=== PATIENT | female | born 1960 | race Caucasian/White ===

== ENCOUNTER 2019-05-30 10:25 | Inpatient (IN) | payer BC ==
[2019-05-30] MEDS ORDERED: NS 0.9% 1000 ML** 1,000 ML IV ONE (10:35)
[2019-05-30] MEDS ORDERED: Morphine 4 MG/ML VIAL (1 ml) 4 MG/ML VIAL IV ONE (10:35)
[2019-05-30] MEDS ORDERED: Ondansetron INJ* 2 MG/ML VIAL IV ONE (10:35)
[2019-05-30 11:19] LABS: Hematocrit 46 % (35-47); Hemoglobin 15.8 g/dL (12.0-16.0); Mean Corpuscular HGB Conc 35 g/dL (31-36); Mean Corpuscular Hemoglobin 32 pg (27-31); Mean Corpuscular Volume 91 fL (80-97); Mean Platelet Volume 8.6 fL (7.4-10.4); Platelet Count 13 10^3/uL (150-450); Red Blood Count 4.99 10^6 /uL (3.70-4.87); Red Cell Distribution Width 13 % (10-15); White Blood Count 4.3 10^3/uL (3.5-10.8)
[2019-05-30 11:40] LABS: Troponin I 0.01 ng/mL (<0.04)
[2019-05-30 11:44] LABS: ABS Eosinophils 0.1 10^3/ul (0-0.6); ABS Lymphocytes 1.5 10^3/ul (1.0-4.8); ABS Monocytes 0.2 10^3/ul (0-0.8); ABS Neutrophils 2.5 10^3/ul (1.5-7.7); Eosinophil % 1.3 %; Nucleated Red Blood Cells % 0.2
[2019-05-30 11:46] LABS: Activated Partial Thrombo Time 31.9 seconds (26.0-38.0); INR 0.98 (0.82-1.09)
[2019-05-30 11:47] LABS: ALT 17 U/L (7-52); Albumin 4.3 g/dL (3.2-5.2); Alkaline Phosphatase 62 U/L (34-104); BUN/Creatinine Ratio 15.9 (8-20); Blood Urea Nitrogen 11 mg/dL (6-24); CO2 Carbon Dioxide 23 mmol/L (22-32); Calcium 9.6 mg/dL (8.6-10.3); Chloride 107 mmol/L (101-111); EGFR African American 104.7 (>60); EGFR Non-African American 86.5 (>60); Globulin 2.1 g/dL (2-4); Glucose 106 mg/dL (70-100); Sodium 138 mmol/L (135-145); Total Protein 6.4 g/dL (6.4-8.9)
[2019-05-30 11:50] LABS: Anion Gap 8 mmol/L (2-11)
[2019-05-30] MEDS ORDERED: Iohexol 300* (CONTRAST) 10 ML SDV IV ONE (12:31)
[2019-05-30] MEDS ORDERED: Acetaminophen TAB* 325 MG PO PRN (13:10)
[2019-05-30] MEDS ORDERED: Morphine 4 MG/ML VIAL (1 ml) 4 MG/ML VIAL IV PRN (13:39)
[2019-05-30] MEDS ORDERED: Dexamethasone IV* 4 MG/ML 1 ML (4 MG) IV SLOW PU SCH (14:00)
--- NOTE | 2019-05-30 15:01 | ED ---
GI/ HPI - HPI Summary HPI Summary: 59 year old female presents to the ED with a chief complaint of intermittent low left abdominal pain secondary to a hernia starting several days ago, worsening this morning. She rates the pain a 6/10 in severity. She noticed a protrusion in her LLQ a few days ago; this protrusion was able to be pushed back in at first, but no longer reduces. The patient also reports subjective fever and nausea but no vomiting. Pt additionally denies any chills, erythema of eyes, sore throat, CP, SOB, cough, dysuria, hematuria, myalgia, edema, rash, or dizziness. Irregular bowel movement this morning. PSHx of breast reconstruction and non-cancerous ovary and fallopian tube removal, appendectomy. - History of Current Complaint Chief Complaint: EDAbdPain Stated Complaint: ABDOMINAL PAIN PER PT Hx Obtained From: Patient Onset/Duration: Started Days Ago, Still Present Timing: Intermittent Severity: Moderate Current Severity: Moderate Pain Intensity: 6 Location of Pain: LLQ Pain Radiates to: Inguinal Associated Signs and Symptoms: Positive: Nausea, Fever, Abdominal Pain, Other: - Positive: irregular BM. Negative: erythema of eyes, sore throat, SOB, myalgia , edema, rash. Negative: Dizziness, Vomiting, Hematuria, Dysuria, Chills, Cough , Chest Pain Aggravating Factor(s): Nothing Alleviating Factor(s): Nothing - Allergy/Home Medications Allergies/Adverse Reactions: Allergies Allergy/AdvReac Type Severity Reaction Status Date / Time diphenhydramine Allergy Severe Anaphylatic Verified 10/02/17 10:48 [From Benadryl] Shock adhesive Allergy Blisters Verified 05/30/19 14:38 doxorubicin [From Adriamycin] Allergy Anaphylatic Verified 10/02/17 10:47 Shock orange Allergy Anaphylatic Verified 05/30/19 14:37 Shock PMH/Surg Hx/FS Hx/Imm Hx Endocrine/Hematology History: Denies: Hx Diabetes Cardiovascular History: Denies: Hx Hypertension, Hx Pacemaker/ICD Respiratory History: Denies: Other Respiratory Problems/Disorders GI History: Reports: Other GI Disorders - OCCASIONAL GASSY, ABD PAIN- CHANGED DIET History: Denies: Hx Renal Disease Musculoskeletal History: Reports: Other Musculoskeletal History - RIGHT KNEE PAIN, R/T MENISCUS TEAR Sensory History: Reports: Hx Contacts or Glasses - GLASSES Denies: Hx Hearing Aid Opthamlomology History: Reports: Hx Contacts or Glasses - GLASSES Neurological History: Reports: Hx Migraine - 1 TIME A YEAR Denies: Other Neuro Impairments/Disorders Psychiatric History: Denies: Hx Panic Disorder - Cancer History Cancer Type, Location and Year: RT BREAST 2006 Hx Chemotherapy: Yes - BREAST Hx Radiation Therapy: Yes - BREAST - Surgical History Surgical History: Yes Surgery Procedure, Year, and Place: APPENDECTOMY A CHILD,. 2000 LAPAROSCOPIC CHOLECYSTECTOMY, [place]. 2005 RIGHT BREAST MASTECTOMY WITH TRANSFLAP RECONSTRUCTION, [place]. 2010 BILATERAL OVARY AND FALLOPIAN TUBES REMOVED, [place], [place]. 2013 UMBILICAL HERNIA REPAIR WITH MESH, [facility] [place]. 09/2006 - Lt BREAST LIFT. 03/2016 - Rt KNEE - MENISCUS Hx Anesthesia Reactions: No Infectious Disease History: No Infectious Disease History: Denies: Traveled Outside the in Last 30 Days - Social History Alcohol Use: Daily Alcohol Amount: BEER OR WINE Substance Use Type: Reports: None Smoking Status (MU): Never Smoked Tobacco Review of Systems Positive: Fever. Negative: Chills Negative: Erythema Negative: Sore Throat Negative: Chest Pain Negative: Shortness Of Breath, Cough Positive: Abdominal Pain, Nausea, Other - irregular bowel movement. Negative: Vomiting Negative: dysuria, hematuria Negative: Myalgia, Edema Negative: Rash Neurological: Negative - Negative - dizziness All Other Systems Reviewed And Are Negative: Yes Physical Exam - Summary Physical Exam Summary: Constitutional: Well-developed, Well-nourished, Alert. (-) Distressed Skin: Warm, Dry HENT: Normocephalic; Atraumatic Eyes: Conjunctiva normal Neck: Musculoskeletal ROM normal neck. (-) JVD, (-) Stridor, (-) Tracheal deviation Cardio: Rhythm regular, rate normal, Heart sounds normal; Intact distal pulses; The pedal pulses are 2+ and symmetric. Radial pulses are 2+ and symmetric. (-) Murmur Pulmonary/Chest wall: Effort normal. (-) Respiratory distress, (-) Wheezes, (-) Rales Abd: Left inguinal hernia that is not reducible, No overlying erythema, Tender to palpation. Soft, (-) Distension, (-) Guarding, (-) Rebound. Musculoskeletal: (-) Edema Lymph: (-) Cervical adenopathy Neuro: Alert, Oriented x3 Psych: Mood and affect Normal Triage Information Reviewed: Yes Vital Signs On Initial Exam: Initial Vitals Temp Pulse Resp BP Pulse Ox 97.9 F 67 18 143/99 100 05/30/19 10:26 05/30/19 10:26 05/30/19 10:26 05/30/19 10:26 05/30/19 10:26 Vital Signs Reviewed: Yes Procedures - Procedure Summary Procedure Summary: Hernia Reduction Procedure: I attempted a hernia reduction procedure after IV morphine was administered. Unable to reduce, surgery will be consulted. - Sedation Patient Received Moderate/Deep Sedation with Procedure: No Diagnostics - Vital Signs Vital Signs Temp Pulse Resp BP Pulse Ox 05/30/19 13:06 70 136/91 100 05/30/19 13:00 71 100 05/30/19 12:36 64 129/84 100 05/30/19 12:06 67 131/82 100 05/30/19 12:00 70 100 05/30/19 11:36 75 140/95 100 05/30/19 11:06 63 125/80 97 05/30/19 11:00 65 100 05/30/19 10:53 68 100 05/30/19 10:51 16 05/30/19 10:26 97.9 F 67 18 143/99 100 - Laboratory Lab Results: Lab Results 05/30/19 05/30/19 05/30/19 Range/Units 10:55 10:57 10:57 WBC 4.3 (3.5-10.8) 10^3/uL RBC 4.99 H (3.70-4.87) 10^6 /uL Hgb 15.8 (12.0-16.0) g/dL Hct 46 (35-47) % MCV 91 (80-97) fL MCH 32 H (27-31) pg MCHC 35 (31-36) g/dL RDW 13 (10-15) % Plt Count 13 L* (150-450) 10^3/uL MPV 8.6 (7.4-10.4) fL Neut % (Auto) 57.8 % Lymph % (Auto) 35.0 % Telfair % (Auto) 5.2 % Eos % (Auto) 1.3 % Baso % (Auto) 0.7 % Absolute Neuts (auto) 2.5 (1.5-7.7) 10^3/ul Absolute Lymphs (auto) 1.5 (1.0-4.8) 10^3/ul Absolute Monos (auto) 0.2 (0-0.8) 10^3/ul Absolute Eos (auto) 0.1 (0-0.6) 10^3/ul Absolute Basos (auto) 0.0 (0-0.2) 10^3/ul Absolute Nucleated RBC 0.0 10^3/ul Nucleated RBC % 0.2 Hem Pathologist Commnt Pending INR (Anticoag Therapy) (0.82-1.09) APTT (26.0-38.0) seconds Sodium 138 (135-145) mmol/L Potassium TNP Chloride 107 (101-111) mmol/L Carbon Dioxide 23 (22-32) mmol/L Anion Gap 8 (2-11) mmol/L BUN 11 (6-24) mg/dL Creatinine 0.69 (0.51-0.95) mg/dL Est GFR ( Amer) 104.7 (>60) Est GFR (Non-Af Amer) 86.5 (>60) BUN/Creatinine Ratio 15.9 (8-20) Glucose 106 H (70-100) mg/dL Lactic Acid 1.5 (0.5-2.0) mmol/L Calcium 9.6 (8.6-10.3) mg/dL Total Bilirubin 0.70 (0.2-1.0) mg/dL AST TNP ALT 17 (7-52) U/L Alkaline Phosphatase 62 (34-104) U/L Troponin I 0.01 (<0.04) ng/mL Total Protein 6.4 (6.4-8.9) g/dL Albumin 4.3 (3.2-5.2) g/dL Globulin 2.1 (2-4) g/dL Albumin/Globulin Ratio 2.0 (1-3) Blood Type Antibody Screen 05/30/19 05/30/19 05/30/19 Range/Units 10:57 11:25 12:17 WBC (3.5-10.8) 10^3/uL RBC (3.70-4.87) 10^6 /uL Hgb (12.0-16.0) g/dL Hct (35-47) % MCV (80-97) fL MCH (27-31) pg MCHC (31-36) g/dL RDW (10-15) % Plt Count (150-450) 10^3/uL MPV (7.4-10.4) fL Neut % (Auto) % Lymph % (Auto) % Telfair % (Auto) % Eos % (Auto) % Baso % (Auto) % Absolute Neuts (auto) (1.5-7.7) 10^3/ul Absolute Lymphs (auto) (1.0-4.8) 10^3/ul Absolute Monos (auto) (0-0.8) 10^3/ul Absolute Eos (auto) (0-0.6) 10^3/ul Absolute Basos (auto) (0-0.2) 10^3/ul Absolute Nucleated RBC 10^3/ul Nucleated RBC % Hem Pathologist Commnt INR (Anticoag Therapy) 0.98 (0.82-1.09) APTT 31.9 (26.0-38.0) seconds Sodium (135-145) mmol/L Potassium 4.0 Chloride (101-111) mmol/L Carbon Dioxide (22-32) mmol/L Anion Gap (2-11) mmol/L BUN (6-24) mg/dL Creatinine (0.51-0.95) mg/dL Est GFR ( Amer) (>60) Est GFR (Non-Af Amer) (>60) BUN/Creatinine Ratio (8-20) Glucose (70-100) mg/dL Lactic Acid (0.5-2.0) mmol/L Calcium (8.6-10.3) mg/dL Total Bilirubin (0.2-1.0) mg/dL AST 22 ALT (7-52) U/L Alkaline Phosphatase (34-104) U/L Troponin I (<0.04) ng/mL Total Protein (6.4-8.9) g/dL Albumin (3.2-5.2) g/dL Globulin (2-4) g/dL Albumin/Globulin Ratio (1-3) Blood Type O Positive Antibody Screen Negative Result Diagrams: 05/31/19 08:18 05/31/19 08:18 Lab Statement: Any lab studies that have been ordered have been reviewed, and results considered in the medical decision making process. - CT AP CT CT Interpretation Completed By: Radiologist Summary of CT Findings: AP CT shows fat-containing left lower quadrant ventral hernia. There is stranding of the herniated fat which may indicate incarceration given the clinical history. An ED physician has reviewed this report. Re-Evaluation - Re-Evaluation First Eval Re-Evaluation Time: 11:50 Change: Unchanged Comment: At 1150, I attempted hernia reduction (see procedure note). Second Eval Re-Evaluation Time: 14:20 Comment: We discussed plan for admission for surgery, pt agrees. GIGU Course/Dx - Course Course Of Treatment: 59 year old female presents to the ED with a chief complaint of intermittent low left abdominal pain secondary to a hernia starting several days ago, worsening this morning. She rates the pain a 6/10 in severity. She noticed a protrusion in her LLQ a few days ago; this protrusion was able to be pushed back in at first, but no longer reduces. The patient also reports subjective fever and nausea but no vomiting. Pt additionally denies any chills, erythema of eyes, sore throat, CP, SOB, cough, dysuria, hematuria, myalgia, edema, rash, or dizziness. Irregular bowel movement this morning. PSHx of breast reconstruction and non-cancerous ovary and fallopian tube removal, appendectomy. Physical exam shows a left inguinal hernia that is not reducible, no overlying erythema but is tender to palpation. Pt administered fluids, morphine, and Zofran in the ED. Lab results show RBCs of 4.99, MCH of 32, plt count of 13, glucose of 106. Lactic acid negative at 1.5 with repeat of 1.0. I attempted a hernia reduction procedure after IV morphine was administered. Unable to reduce, surgery will be consulted. Abd/Pel CT shows fat-containing left lower quadrant ventral hernia. There is stranding of the herniated fat which may indicate incarceration given the clinical history. At [address] Joseph, message left as he was in surgery, but he returned call and will come to the ED. At [address] Potts, Oncology, about the patient' s case. Dr. Joseph agreed that the patient be admitted for hernia reduction surgery. Patient admitted to surgery. She understands and agrees with plan. Diagnosis is left lower quadrant ventral hernia. - Diagnoses Provider Diagnoses: Ventral hernia - Physician Notifications Discussed Care Of Patient With: Anderson Joseph - surgery Time Discussed With Above Provider: 11:05 Instructed by Provider To: Other - 1105 - Left a message for Dr. Joseph as he is currently in surgery; he will come to ED to speak with pt. 1212 - discussed pt's case with Dr. Potts. 1541 - Dr. Joseph still in agreement with plan for admission. Discharge ED - Sign-Out/Discharge Documenting (check all that apply): Patient Departure - discharge - Discharge Plan Condition: Stable Disposition: ADMITTED TO [facility] - Billing Disposition and Condition Condition: STABLE Disposition: Admitted to [facility] - Attestation Statements Document Initiated by Scribe: Yes Documenting Scribe: Houston Canales Provider For Whom Scribe is Documenting (Include Credential): Richard Urbina MD. Scribe Attestation: Houston Russell, anuped for Richard Urbina MD. on 06/10/19 at 2128. Scribe Documentation Reviewed: Yes Provider Attestation: The documentation as recorded by the scribeHouston accurately reflects the service I personally performed and the decisions made by Richard nguyen MD. Status of Scribe Document: Viewed
[2019-05-30] MEDS ORDERED: IMMUNE GLOBULN IV SCH ×2 (16:30→21:00)
--- NOTE | 2019-05-30 17:38 | CONS ---
CC: Dr. Ilya Potts at [facility] * CONSULTATION REPORT: DATE OF CONSULT: 05/30/19 REASON FOR CONSULTATION: Left lower abdominal wall hernia. HISTORY OF PRESENT ILLNESS: Ms. Angy Mosher is a very pleasant 59-year- old woman who is retired, who has noted a small abdominal wall hernia in her left lower abdomen/groin over the past year or so. This has always been easily reducible and does not really cause her much discomfort. Over the past several days, however, it has become somewhat firmer and causing some discomfort. She has also had some associated periumbilical discomfort and some mild nausea, but no vomiting. She has not had any fevers, had a small bowel movement this morning. She has noted no generalized abdominal distention, but has had some anorexia The pain worsened today and the lump became so much firmer that she presented to the emergency room today late this morning. She was noted to be afebrile with a heart rate in the 70s. Her vital signs were all stable. Laboratory workup showed a normal hemoglobin; however, interestingly, he had a platelet count of 13,000 which is new for her. The differential on the blood count was also unremarkable. Electrolytes, BUN and creatinine as well as lactic acid were all unremarkable. LFTs were normal. She underwent a CT scan of the abdomen and pelvis with oral contrast, I did review these images. This shows no evidence of a bowel obstruction or bowel distention. There is a fat- containing left lower quadrant ventral hernia, which contains fat with some surrounding inflammation and a mild amount of fluid which is consistent with an incarcerated, possible strangulated ventral hernia containing fat. The oncology service has seen her and planned to admit her. The feeling about the thrombocytopenia is this is ITP, and she will be observed for now. She gives no recent history of viral-type illness or other medications or reasons for her thrombocytopenia. Surgical consultation has been obtained. PAST MEDICAL HISTORY: Breast cancer. This was diagnosed in 2008. PAST SURGICAL HISTORY: 1. Laparoscopic cholecystotomy. 2. Open appendectomy as a teenager for perforation. 3. Laparoscopic bilateral oophorectomy with fallopian tube removal. 4. Right mastectomy with TRAM flap done in [place]. MEDICATIONS: Include: 1. Vitamin B12. 2. Multivitamins. 3. Vitamin B. ALLERGIES: Allergies are to DIPHENHYDRAMINE, ADHESIVE, DOXORUBICIN, and oranges. SOCIAL HISTORY: She is and retired. She lives in [place]. She does not smoke, drinks alcohol on a social basis. REVIEW OF SYSTEMS: As per above. She gives no recent viral illnesses or other symptoms. She has noted no skin changes over the area of the lump in the left lower abdomen. PHYSICAL EXAM: She is afebrile, pulse 70, blood pressure 136/91. In general, she is a well-developed, well-nourished female, appears to be in no apparent distress. She is very alert, conversive and very pleasant. Lungs were clear to auscultation with normal respiratory effort. Heart was regular rate and rhythm without murmurs, rubs, or gallops. Her abdomen is soft, nondistended and she had normoactive bowel sounds throughout. She has a well-healed low transverse incision from the iliac crest to the iliac crest. There is an incision around the umbilicus as well as upper abdominal and lower abdominal laparoscopic incision with scars. In the left groin, there is a small fleshy soft bulge almost at the site where there may be an inguinal hernia; however, there is a small transverse incision over this area. There are no overlying skin changes, redness, or fluid. This is mildly tender, and in the supine position, is not completely reducible. She has no generalized peritoneal irritation or tenderness. IMPRESSION: Fat-containing left lower quadrant abdominal wall ventral hernia without evidence of bowel involvement. I am not certain if this is a primary inguinal hernia (does not appear to be femoral) or is this an incisional hernia. This is not completely reducible, but it is only mildly tender on physical exam. Coincidentally, she has presented with a platelet count of 13, 000 which is new for her. It has been many years since chemotherapy and she gives no other risk factors for thrombocytopenia at this point. PLAN: Plan is that she will be admitted to the oncology service. We will keep her n.p.o. for now and start her on IV fluids. She is to receive some steroids for her platelet count, we will observe these for the next several days. There is no urgency in terms of surgical repair of this hernia at this point and certainly if her platelet count would improve and her pain persists, while she was here this hernia could be repaired early next week in the operating room. I discussed all of this with her and we will follow her closely with you. Thank you very much for this consultation. I also discussed personally with Roberto Mohan, nurse practitioner at the oncology service. [id number]/[facility] #: [id number] CARO
[2019-05-30] MEDS ORDERED: Dexamethasone IV* 4 MG/ML 5 ML VIAL (20 MG) IVPB SCH (17:54)
[2019-05-30] MEDS: NS 0.9% 1000 ML** 1,000 ML IV SCH (18:17)
--- NOTE | 2019-05-30 20:07 | HP ---
CC: Dr. Joseph * ADMISSION HISTORY AND PHYSICAL: DATE OF ADMISSION: 05/30/19 PRIMARY CARE PROVIDER: Not listed. PRIMARY ONCOLOGIST AND ATTENDING PHYSICIAN: Dr. Ilya Potts.* (DICTATED BY LEONELA KEYS) CONSULTING GENERAL SURGEON: Dr. Joseph. CHIEF COMPLAINT: Abdominal pain and nausea. HISTORY OF PRESENT ILLNESS: This is a 59-year-old female, who has a remote history of early stage breast cancer treated in 2005 and has had no evidence of recurrence since that time and presented to the emergency department with complaints of abdominal pain and nausea. She has noted a bulging in the left lower quadrant intermittently over the last several months, more notably in the last month and has had intermittent pain especially when she eats things that "don't agree with her" over the last couple of weeks. She had more pain that was quite persistent, started acutely last night with some associated nausea in the overnight hours. She awoke this morning and had a small bowel movement, but felt as if she was going to pass out and was subsequently brought to the emergency department by her . The hernia in the left lower quadrant was hard and fixed and unable to be easily reduced. Routine labs in the emergency department discovered new thrombocytopenia with a platelet count of 13,000. The patient states that she has otherwise been feeling well over the last couple of weeks. She denies any recent illnesses. No recent medication changes including new [id number] supplements. Last labs for review showed a nearly normal platelet count from September of 2017 at 135,000. She reports that she has had no recent bruising or other easy bleeding. No other changes. PAST MEDICAL HISTORY: 1. Early stage right-sided breast cancer, status post bilateral mastectomy with reconstruction and adjuvant chemotherapy and endocrine therapy. 2. BRCA2 abnormal - unclear if this is a true positive. PAST SURGICAL HISTORY: 1. Bilateral mastectomy with reconstruction. 2. Umbilical hernia repair. 3. Oophorectomy. HOME MEDICATIONS: 1. Cholecalciferol 5000 units p.o. daily. 2. Vitamin B12 500 mcg p.o. daily. 3. Vitamin B complex 1 capsule p.o. daily. FAMILY HISTORY: The patient has 2 paternal aunts with breast cancer and a paternal cousin with breast cancer. SOCIAL HISTORY: The patient lives at home with her . No significant smoking history. REVIEW OF SYSTEMS: Full review of systems completed and negative except for as noted in the HPI. PHYSICAL EXAMINATION GENERAL: This is a very pleasant 59-year-old female, in no acute distress. INITIAL VITAL SIGNS: Temperature 97.9 degrees Fahrenheit, pulse 67 beats per minute, respiratory rate 18, oxygen saturation 100% on room air, blood pressure 143/99 mmHg. HEENT: Head is normocephalic, atraumatic. Mucous membranes are pink and moist. RESPIRATORY: Lungs are clear to auscultation without wheezes, crackles, or rhonchi. CARDIOVASCULAR: Heart has a regular rate and rhythm without murmurs, rubs, or gallops. ABDOMEN: Soft. There is a firm mass that is not easily reduced in the left lower quadrant and somewhat tender to palpation. No diffuse tenderness to palpation and bowel sounds are active. EXTREMITIES: No peripheral edema. SKIN: No rashes noted. DIAGNOSTIC STUDIES/LAB DATA: CBC shows a white blood cell count of 4300, hemoglobin of 15.8 g/dL, and a platelet count of 13,000. INR normal at 0.98, PTT is 31.9. Comprehensive metabolic panel is within normal limits with a sodium of 138, potassium of 4.0, BUN of 11, creatinine 0.69. Lactic acid within normal limits at 1.5 and on repeat 1.0. Transaminases and total bilirubin are within normal limits. Imaging: CT abdomen and pelvis with contrast shows a fat-containing left lower quadrant ventral hernia with stranding of the hernia fat, which may indicate incarceration given clinical history. There is a low attenuation lesion of the right lobe of the liver, new when compared to 2006. ASSESSMENT AND PLAN: This is a 59-year-old female with a remote history of breast cancer and otherwise healthy, who presented to the emergency department with complaints of left lower quadrant abdominal pain and nausea with evidence of an incarcerated hernia and an incidental finding of severe thrombocytopenia. The patient will subsequently be admitted to the hospital for appropriate treatment and further evaluation. 1. Thrombocytopenia - the patient appears to otherwise be well. This presentation is most consistent with immune thrombocytopenic purpura. No evidence of associated bleeding, but platelet count is quite low and she may require surgical intervention for her incarcerated hernia and urgent treatment of her immune thrombocytopenic purpura is necessary. Given the potential need for surgical intervention, we will treat for immune thrombocytopenic purpura with IVIG over 2 days and dexamethasone at a dose of 40 mg IV for 4 days. This combination of therapy should result in quickest elevation of platelets. She has no obvious inciting factors such as new medications or recent illnesses that prompted this likely immune thrombocytopenic purpura episode. No other cell lines affected, making this much less likely to be a primary bone marrow process. 2. Incarcerated hernia - the patient has no clinical signs of obstruction and on CT scan there is no bowel included within the hernia. This hernia is not easily reduced in the emergency department, but pending further evaluation by the surgical team. I spoke with Dr. Joseph directly, who agrees that the patient does not require immediate surgical intervention, but may require surgical correction in the near future. The patient will remain n.p.o. at this time and Dr. Joseph will attempt manual reduction at the patient's bedside. 3. Liver lesion - this appears benign on imaging, but can be further characterized by ultrasound and unlikely to be contributing to her acute presentation. 4. Remote history of breast cancer, early stage. 5. DVT prophylaxis: Chemical prophylaxis is contraindicated in the setting of severe thrombocytopenia. 6. Code status: The patient is full code. 7. Disposition: The patient is being admitted to inpatient status with length of stay anticipated to be greater than 1 midnight. LEONELA KEYS [id number]/[facility] #: [id number] MTDD
[2019-05-30 21:21] LABS: Urine Appearance Clear; Urine Bilirubin Negative (Negative); Urine Blood Negative (Negative); Urine Color Yellow; Urine Glucose Negative (Negative); Urine Ketones 1+ (Negative); Urine Nitrite Negative (Negative); Urine Protein Negative (Negative); Urine Specific Gravity 1.043 (1.010-1.030); Urine Urobilinogen Negative (Negative)
[2019-05-31] MEDS: NS 0.9% 1000 ML** 1,000 ML IV SCH ×2 (03:33→14:19)
[2019-05-31 08:32] LABS: ABS Eosinophils 0.1 10^3/ul (0-0.6); ABS Lymphocytes 0.8 10^3/ul (1.0-4.8); ABS Monocytes 0.3 10^3/ul (0-0.8); ABS Neutrophils 2.4 10^3/ul (1.5-7.7); Eosinophil % 2.4 %; Hematocrit 39 % (35-47); Hemoglobin 13.2 g/dL (12.0-16.0); Lymphocyte % 22.6 %; Mean Corpuscular HGB Conc 34 g/dL (31-36); Mean Corpuscular Hemoglobin 31 pg (27-31); Mean Corpuscular Volume 92 fL (80-97); Nucleated Red Blood Cells % 0.1; Platelet Count 142 10^3/uL (150-450); Red Blood Count 4.21 10^6 /uL (3.70-4.87); Red Cell Distribution Width 13 % (10-15); White Blood Count 3.6 10^3/uL (3.5-10.8)
[2019-05-31 08:49] LABS: Albumin 3.4 g/dL (3.2-5.2); Albumin/Globulin Ratio 0.9 (1-3); BUN/Creatinine Ratio 13.8 (8-20); Calcium 8.3 mg/dL (8.6-10.3); EGFR African American 112.1 (>60); EGFR Non-African American 92.7 (>60); Globulin 3.6 g/dL (2-4); Potassium 3.8 mmol/L (3.5-5.0); Total Bilirubin 0.8 mg/dL (0.2-1.0)
--- NOTE | 2019-05-31 10:01 | PN ---
Progress Note - Progress Note Date of Service: 05/31/19 SOAP: Subjective: Pain is better. Abdomen feels back to normal. No N/V. Objective: Vital Signs Temp 97.5 F 05/31/19 07:49 Pulse 67 05/31/19 07:49 Resp 16 05/31/19 07:49 BP 135/78 05/31/19 07:49 Pulse Ox 97 05/31/19 07:49 Gen: sitting up in bed; NAD Abd: ND, soft, NT, No palpable mass/hernia. Intake & Output 05/30/19 05/31/19 05/31/19 18:59 06:59 18:59 Intake Total 1000 1125 124 Output Total 1300 300 Balance 1000 -175 -176 Weight 135 lb Intake: IV Fluids 1000 1125 NS (0.9%) 1125 Medicated IV 124 INFCTR - IVIG 124 Oral 0 [place] Amount 0 Output: Urine 1300 300 Other: # Bowel Movements 1 Estimated Stool Amount Medium Assessment: Incarcerated LLQ hernia now reduced. Thrombocytopenia. Plan: Elective repair when medically stable. Discussed s/sx of incarceration and advised to seek medical care if recurs, otherwise ok to f/u as outpt. Will sign off.
[2019-05-31 17:01] VITALS: BP 151/95
--- NOTE | 2019-07-06 13:59 | DS ---
DISCHARGE SUMMARY: DATE OF ADMISSION: 05/30/19 DATE OF DISCHARGE: 05/31/19 REASON FOR ADMISSION: 1. Incarcerated hernia. 2. New diagnosis of idiopathic thrombocytopenic purpura. HISTORY AND HOSPITAL COURSE: Angy Mosher is a 59-year-old female with remote history of breast cancer, doing well without evidence for recurrence. She presented to the emergency room with abdomi nal pain and nausea. Symptoms had worsened over a period of less than 24 hours prior to presenting t o the emergency room. She was found on laboratory studies to have CBC with a platelet count incident ally of 13,000 without significant bleeding or bruising recently. On imaging studies, there was a fa t containing left lower quadrant ventral hernia with stranding of the hernia fat, likely incarceratio n. In addition, there was a new low attenuation lesion of the right lobe of the liver compared to 13 02. The peripheral smear was reviewed. There was clearly a diminished number of platelets present o n the peripheral smear on my review. Previous platelet count earlier this year was 135,000 just belo w the lower limits of normal. The patient was seen in consultation by Surgery who was able to reduce the hernia. Given the thromboc ytopenia, decision was made not to operate it emergently and to consider elective hernia repair in th e future. Given the extremely low platelet count found incidentally, decision was made to treat with IV IgG and Decadron. By the following day, somewhat surprisingly the platelet count had increased t o 142,000 and the patient was able to be discharged home in stable condition. Decision was made given this is much higher platelet count to not continue further on medications past discharge. DISCHARGE DIAGNOSES: 1. Incarcerated hernia, reduced. 2. Thrombocytopenia, improved. 3. History of breast cancer. MEDICATIONS AT THE TIME OF DISCHARGE: Included: 1. Vitamin B. 2. Cyanocobalamin. 3. Cholecalciferol. The patient was asked to follow up in our office in 1 to 2 weeks' time with a CBC to obtain on and then just prior to the office visit. The patient was asked to follow up also with Dr. Anderson gallegos of Surgery in 1 to 2 weeks' time. [id number]/[facility] #: [id number]
== END 2019-05-31 17:10 | disposition home or self-care (01) | DRG 661 ==
LOC: ED 10:25 → SSU 13:10
PROVIDERS: ADMIT Internal Medicine Hematology & Oncology; ATTEND Internal Medicine Hematology & Oncology
DX: D69.6 Thrombocytopenia, unspecified (principal); K43.6 Other and unspecified ventral hernia with obstruction, without gangrene; K76.9 Liver disease, unspecified; Z85.3 Personal history of malignant neoplasm of breast; Z90.13 Acquired absence of bilateral breasts and nipples; Z92.21 Personal history of antineoplastic chemotherapy; Z90.49 Acquired absence of other specified parts of digestive tract; Z90.722 Acquired absence of ovaries, bilateral; Z88.8 Allergy status to other drugs, medicaments and biological substances; Z91.018 Allergy to other foods
CPT/HCPCS: 36415; 74177; 80053; 81003; 83605; 84484; 85025; 85060; 85610; 85730; 86850; 86900; 86901; 87040; 90283; 93005; 96361; 96374; 96375; 99222; 99285; J1100; J1459; J2270; J2405; Q9967

== ENCOUNTER 2019-06-02 10:06 | Emergency (ER) | payer BC ==
--- NOTE | 2019-06-02 11:28 | ED ---
Dizziness - HPI Summary HPI Summary: The patient is a 59 y/o F presenting to [facility] with a chief complaint of sudden onset dizziness today. She reports that she had recently been admitted for low platelets, which are thought to be secondary to ITP. She returned home two days ago and has felt alright since until today when she had been walking and felt dizzy. The dizziness is described as a combination of a weakness and also a room -spinning sensation. These symptoms are still present now, rated 0/10 in severity. She denies any chest pain, shortness of breath, decreased appetite, nausea, or vomiting. PMHx: hernia, GI issues and surgeries. Nonsmoker, daily EtOH, no substance use. Medications reviewed. Allergies noted. - History Of Current Complaint Chief Complaint: EDDizziness Stated Complaint: LIGHT HEADNESS, DIZZY Time Seen by Provider: 06/02/19 11:10 Hx Obtained From: Patient Onset/Duration: Still Present, Suddenly Timing: Hours Severity Initially: Moderate Severity Currently: Mild Character: Room Spinning, Weak, Dizzy Aggravating Factor(s): Exertion Alleviating Factor(s): Rest Associated Signs And Symptoms: Negative: Nausea, Vomiting, Chest Pain, SOB, Decreased Oral Intake - Allergies/Home Medications Allergies/Adverse Reactions: Allergies Allergy/AdvReac Type Severity Reaction Status Date / Time diphenhydramine Allergy Severe Anaphylatic Verified 10/02/17 10:48 [From Benadryl] Shock adhesive Allergy Blisters Verified 05/30/19 14:38 doxorubicin [From Adriamycin] Allergy Anaphylatic Verified 10/02/17 10:47 Shock orange Allergy Anaphylatic Verified 05/30/19 14:37 Shock Home Medications: Home Medications Acetaminophen TAB* [Tylenol TAB*] 325 mg PO Q4H PRN 06/02/19 [History Confirmed 06/02/19] PMH/Surg Hx/FS Hx/Imm Hx Endocrine/Hematology History: Denies: Hx Diabetes Cardiovascular History: Denies: Hx Hypertension, Hx Pacemaker/ICD Respiratory History: Denies: Other Respiratory Problems/Disorders GI History: Reports: Other GI Disorders - OCCASIONAL GASSY, ABD PAIN- CHANGED DIET History: Denies: Hx Renal Disease Musculoskeletal History: Reports: Other Musculoskeletal History - RIGHT KNEE PAIN, R/T MENISCUS TEAR Sensory History: Reports: Hx Contacts or Glasses - GLASSES Denies: Hx Hearing Aid Opthamlomology History: Reports: Hx Contacts or Glasses - GLASSES Neurological History: Reports: Hx Migraine - 1 TIME A YEAR Denies: Other Neuro Impairments/Disorders Psychiatric History: Denies: Hx Panic Disorder - Cancer History Cancer Type, Location and Year: RT BREAST 2006 Hx Chemotherapy: Yes - BREAST Hx Radiation Therapy: Yes - BREAST - Surgical History Surgery Procedure, Year, and Place: APPENDECTOMY A CHILD,. 2000 LAPAROSCOPIC CHOLECYSTECTOMY, [place]. 2005 RIGHT BREAST MASTECTOMY WITH TRANSFLAP RECONSTRUCTION, [place]. 2010 BILATERAL OVARY AND FALLOPIAN TUBES REMOVED, [place], [place]. 2013 UMBILICAL HERNIA REPAIR WITH MESH, [facility] [place]. 09/2006 - Lt BREAST LIFT. 03/2016 - Rt KNEE - MENISCUS Hx Anesthesia Reactions: No Infectious Disease History: No Infectious Disease History: Denies: Traveled Outside the [place] in Last 30 Days - Family History Known Family History: Negative: Hypertension, Diabetes - Social History Alcohol Use: Daily Alcohol Amount: BEER OR WINE Hx Substance Use: No Substance Use Type: Reports: None Hx Tobacco Use: No Smoking Status (MU): Never Smoked Tobacco Review of Systems Negative: Chest Pain Negative: Shortness Of Breath Negative: Vomiting, Nausea, Other - decreased appetite Neurological: Other - dizziness, near syncope All Other Systems Reviewed And Are Negative: Yes Physical Exam - Summary Physical Exam Summary: VITAL SIGNS: Reviewed. GENERAL: Patient is a well-developed and nourished female who is lying comfortable in the stretcher. Patient is not in any acute respiratory distress. HEAD AND FACE: No signs of trauma. No ecchymosis, hematomas or skull depressions. No sinus tenderness. EYES: PERRLA, EOMI x 2, No injected conjunctiva, no nystagmus. EARS: Hearing grossly intact. Ear canals and tympanic membranes are within normal limits. MOUTH: Oropharynx within normal limits. NECK: Supple, trachea is midline, no adenopathy, no JVD, no carotid bruit, no c- spine tenderness, neck with full ROM. CHEST: Symmetric, no tenderness at palpation. LUNGS: Clear to auscultation bilaterally. No wheezing or crackles. CVS: Regular rate and rhythm, S1 and S2 present, no murmurs or gallops appreciated. ABDOMEN: Soft, non-tender. No signs of distention. No rebound, no guarding, and no masses palpated. Bowel sounds are normal. EXTREMITIES: FROM in all major joints, no edema, no cyanosis or clubbing. NEURO: Alert and oriented x 3. No acute neurological deficits. Speech is normal and follows commands. SKIN: Dry and warm. GCS: 15. Triage Information Reviewed: Yes Vital Signs On Initial Exam: Initial Vitals Temp Pulse Resp BP Pulse Ox 97 F 71 16 143/93 99 06/02/19 10:12 06/02/19 10:12 06/02/19 10:12 06/02/19 10:12 06/02/19 10:12 Vital Signs Reviewed: Yes - [place] Coma Scale Best Eye Response: 4 - Spontaneous Best Motor Response: 6 - Obeys Commands Best Verbal Response: 5 - Oriented Coma Scale Total: 15 Procedures - Sedation Patient Received Moderate/Deep Sedation with Procedure: No Diagnostics - Vital Signs Vital Signs Temp Pulse Resp BP Pulse Ox 06/02/19 10:12 97 F 71 16 143/93 99 - Laboratory Result Diagrams: 06/02/19 11:22 06/02/19 11:22 Lab Statement: Any lab studies that have been ordered have been reviewed, and results considered in the medical decision making process. - Radiology Chest X-Ray Radiology Interpretation Completed By: Radiologist Summary of Radiographic Findings: Impression: No acute cardiopulmonary process by radiograph. ED physician has reviewed this report. - CT Brain CT CT Interpretation Completed By: Radiologist Summary of CT Findings: Impression: There is no evidence of intracranial mass or hemorrhage. ED physician has reviewed this report. - EKG 1137 Cardiac Rate: NL - 60 bpm EKG Rhythm: Sinus Rhythm Summary of EKG Findings: EKG at 1137 reveals NSR at [address] elevations. ED physician has reviewed and interpreted this EKG. Re-Evaluation - Re-Evaluation First Eval Re-Evaluation Time: 13:40 Change: Improved Comment: Patient is feeling better. Second Eval Re-Evaluation Time: 14:35 Change: Improved Comment: She is feeling less dizzy now. We ambulated, and she does not have ataxia. Dizzy Course/Dx - Course Assessment/Plan: Patient is a 59 y/o F with chief complaint of dizziness dsecribed as a weakness and room-spinning sensation onset this afternoon that has mildy persisted. Blood work without any significant abnormality except for magnesium 1.7 and BNP 147. Platelets are normal at 141. Chest x-ray impression: No acute cardiopulmonary process evident. In the ED course, the patient is feeling better. The patient is hemodynamically stable, and the neuro exam is completely normal. The patient does not have any acute neurological focal deficits. Head CT impression: There is no evidence of intracranial mass or hemorrhage. In the ED course, the patient has remained stable. The patients symptoms have improved. We discussed discharge to send the patient home with follow-up with PCP. The patient is ambulating without any ataxia. Neurological exam before discharge is normal. The patient does not have any acute neurological focal deficits. At this point I discussed all the findings and test results with the patient. She was instructed to return to the emergency room immediately if any of the symptoms return or worsen. Patient understands and agrees. Neurological exam before discharge: Patient is alert and oriented x 3. No acute neurological deficits. Patient's vital signs are stable. Patient is to follow up with PCP in the next 2 3 days. They understand and agree. Plan of care was discussed with the patient and patient understands and agrees with the plan of care. All questions were answered at patient satisfaction. There were no further complaints or concerns. - Diagnoses Provider Diagnoses: Vertigo Discharge ED - Sign-Out/Discharge Documenting (check all that apply): Patient Departure - Patient will be discharged home. - Discharge Plan Condition: Improved Disposition: HOME Prescriptions: Diazepam TAB(*) [Valium TAB(*)] 5 mg PO TID PRN #10 tab MDD 4 PRN Reason: Vertigo Patient Education Materials: Dizziness (ED) Referrals: Ilya Potts MD [Primary Care Provider] - 3 Days Additional Instructions: Follow up with your primary care provider in 2-3 days. Return to the emergency department for any new or worsening symptoms. - Billing Disposition and Condition Condition: IMPROVED Disposition: Home - Attestation Statements Document Initiated by Elie: Yes Documenting Scribe: Melinda Foote Provider For Whom Elie is Documenting (Include Credential): MD Liz Naranjoibe Attestation: Melinda Russell scribed for Dr. Andi Calero MD on 06/03/19 at 1842. Scribe Documentation Reviewed: Yes Provider Attestation: The documentation as recorded by the Melinda del rosario accurately reflects the service I personally performed and the decisions made by me, Dr. Andi Calero MD Status of Scribe Document: Viewed
[2019-06-02 11:34] LABS: ABS Lymphocytes 1.7 10^3/ul (1.0-4.8); ABS Monocytes 0.4 10^3/ul (0-0.8); ABS Neutrophils 3.6 10^3/ul (1.5-7.7); Eosinophil % 0.1 %; Hematocrit 40 % (35-47); Hemoglobin 13.8 g/dL (12.0-16.0); Lymphocyte % 29.7 %; Mean Corpuscular HGB Conc 35 g/dL (31-36); Mean Corpuscular Hemoglobin 31 pg (27-31); Mean Corpuscular Volume 91 fL (80-97); Mean Platelet Volume 9.5 fL (7.4-10.4); Nucleated Red Blood Cells % 0.1; Platelet Count 141 10^3/uL (150-450); Red Blood Count 4.42 10^6 /uL (3.70-4.87); Red Cell Distribution Width 14 % (10-15); White Blood Count 5.8 10^3/uL (3.5-10.8)
[2019-06-02] MEDS ORDERED: Meclizine TAB* 12.5 MG PO ONE (11:38)
[2019-06-02 11:51] LABS: ALT 25 U/L (7-52); AST 27 U/L (13-39); Albumin 3.9 g/dL (3.2-5.2); Albumin/Globulin Ratio 1.2 (1-3); Alkaline Phosphatase 49 U/L (34-104); Anion Gap 5 mmol/L (2-11); BUN/Creatinine Ratio 19.7 (8-20); Blood Urea Nitrogen 14 mg/dL (6-24); C Reactive Protein 1.04 mg/L (<8.01); CO2 Carbon Dioxide 27 mmol/L (22-32); Calcium 9.5 mg/dL (8.6-10.3); Chloride 106 mmol/L (101-111); Creatine Kinase 114 U/L (10-223); EGFR African American 101.3 (>60); EGFR Non-African American 83.7 (>60); Globulin 3.2 g/dL (2-4); Glucose 97 mg/dL (70-100); Magnesium 1.7 mg/dL (1.9-2.7); Potassium 3.9 mmol/L (3.5-5.0); Sodium 138 mmol/L (135-145); Total Protein 7.1 g/dL (6.4-8.9)
[2019-06-02 12:05] LABS: Alcohol < 10 mg/dL (<10)
[2019-06-02 12:21] LABS: TSH (Thyroid Stimulating Horm) 3.53 mcIU/mL (0.34-5.60)
[2019-06-02] MEDS ORDERED: Magnesium Oxide TAB* 400 MG PO ONE (12:24)
[2019-06-02 15:10] VITALS: BP 154/95
== END 2019-06-02 15:10 | disposition home or self-care (01) ==
LOC: ED 10:06
DX: R42 Dizziness and giddiness (principal); Z85.3 Personal history of malignant neoplasm of breast; Z90.49 Acquired absence of other specified parts of digestive tract; Z90.11 Acquired absence of right breast and nipple; Z88.8 Allergy status to other drugs, medicaments and biological substances
CPT/HCPCS: 36415; 70450; 71046; 80053; 80320; 82550; 83605; 83735; 83880; 84443; 84484; 85025; 86140; 93005; 99282; A9270-GY; G0480